=== PATIENT | female | born 1985 | race Two or more races ===

== ENCOUNTER → 2020-09-17 | Outpatient (CLI) | payer OTHER | END | disposition home or self-care (01) | LOC: PRENATAL 15:25 | PROVIDERS: ATTEND Obstetrics & Gynecology Maternal & Fetal Medicine | DX: Z36.89 Encounter for other specified antenatal screening (principal); O36.80X1 Pregnancy with inconclusive fetal viability, fetus 1; O09.521 Supervision of elderly multigravida, first trimester; Z3A.13 13 weeks gestation of pregnancy ==

== ENCOUNTER → 2020-10-22 | Outpatient (CLI) | payer OTHER | END | disposition home or self-care (01) | LOC: PRENATAL 09:00 | PROVIDERS: ATTEND Obstetrics & Gynecology Maternal & Fetal Medicine | DX: O35.0XX1 Maternal care for (suspected) central nervous system malformation in fetus, fetus 1 (principal); O35.3XX1 Maternal care for (suspected) damage to fetus from viral disease in mother, fetus 1; O98.512 Other viral diseases complicating pregnancy, second trimester; O09.512 Supervision of elderly primigravida, second trimester; Z36.89 Encounter for other specified antenatal screening; Z3A.18 18 weeks gestation of pregnancy ==

== ENCOUNTER 2021-02-24 03:58 | Inpatient (IN) | payer OTHER ==
[~2021-02-24] VITALS: Ht 162.6 cm; Wt 72.1 kg
[2021-02-24] MEDS ORDERED: PRENATAL TABLE1 EAC1 PO (04:19)
[2021-02-24] MEDS ORDERED: SYNTHROID50 MCG PO (04:20)
== END 2021-02-26 17:49 | disposition home or self-care (01) | DRG 807 ==
LOC: LDR 03:58 → SURG-SUITE 03:58
PROVIDERS: ADMIT Specialist; ATTEND Specialist
PROC: 10E0XZZ Delivery of Products of Conception, External Approach (ICD-10-PCS; principal; 2021-02-24)
PROC: 10907ZC Drainage of Amniotic Fluid, Therapeutic from Products of Conception, Via Natural or Artificial Opening (ICD-10-PCS; 2021-02-24)
PROC: 4A1HXFZ Monitoring of Products of Conception, Cardiac Rhythm, External Approach (ICD-10-PCS; 2021-02-24)
DX: O60.14X0 Preterm labor third trimester with preterm delivery third trimester, not applicable or unspecified (principal); Z37.0 Single live birth; O99.284 Endocrine, nutritional and metabolic diseases complicating childbirth; E03.9 Hypothyroidism, unspecified; Z3A.36 36 weeks gestation of pregnancy; Z20.822 Contact with and (suspected) exposure to COVID-19

== ENCOUNTER 2021-06-04 07:33 | Outpatient (CLI) | payer OTHER ==
[~2021-06-04 07:33] MED LIST: PRENATAL TABLE1 EAC1 PO; SYNTHROID50 MCG PO
== END 2021-06-04 07:47 | disposition home or self-care (01) ==
LOC: SONOGRAMA 07:33 → MAMO-SONO 07:45 → SONOGRAMA 07:47
PROVIDERS: ATTEND Internal Medicine
DX: E04.2 Nontoxic multinodular goiter (principal)

== ENCOUNTER 2021-09-24 08:00 | Outpatient (CLI) | payer OTHER | END 2021-09-24 08:30 | disposition home or self-care (01) | LOC: PPH VACUNA 08:00 | PROVIDERS: ATTEND Emergency Medicine Pediatric Emergency Medicine | DX: Z23 Encounter for immunization (principal) ==

== ENCOUNTER 2022-01-17 11:37 | Outpatient (CLI) | payer OTHER | END 2022-01-17 11:52 | disposition home or self-care (01) | LOC: SONOGRAMA 11:37 | PROVIDERS: ATTEND Obstetrics & Gynecology | DX: R10.2 Pelvic and perineal pain (principal) ==

== ENCOUNTER 2022-03-25 12:17 | Outpatient (CLI) | payer OTHER | END 2022-03-25 12:25 | disposition home or self-care (01) | LOC: SONOGRAMA 12:17 | PROVIDERS: ATTEND Internal Medicine | DX: E04.2 Nontoxic multinodular goiter (principal) ==

== ENCOUNTER 2023-04-18 09:33 | Outpatient (CLI) | payer OTHER | END 2023-04-18 09:41 | disposition home or self-care (01) | LOC: RAD 09:33 | DX: M99.01 Segmental and somatic dysfunction of cervical region (principal); M99.02 Segmental and somatic dysfunction of thoracic region; M99.03 Segmental and somatic dysfunction of lumbar region; M99.04 Segmental and somatic dysfunction of sacral region; M99.05 Segmental and somatic dysfunction of pelvic region ==

== ENCOUNTER → 2023-11-03 | Outpatient (CLI) | payer OTHER | END | disposition home or self-care (01) | LOC: SONOGRAMA 08:33 | PROVIDERS: ATTEND Internal Medicine | DX: E04.2 Nontoxic multinodular goiter (principal) ==

== ENCOUNTER → 2024-04-06 09:50 | Outpatient (CLI) | payer OTHER | END | disposition home or self-care (01) | LOC: PRENATAL 09:50 | PROVIDERS: ATTEND Obstetrics & Gynecology Maternal & Fetal Medicine | DX: O36.80X0 Pregnancy with inconclusive fetal viability, not applicable or unspecified (principal); Z36.82 Encounter for antenatal screening for nuchal translucency; O99.281 Endocrine, nutritional and metabolic diseases complicating pregnancy, first trimester; Z3A.11 11 weeks gestation of pregnancy; Z87.51 Personal history of pre-term labor ==

== ENCOUNTER 2024-04-17 20:21 | Emergency (ER) | payer OTHER ==
[~2024-04-17] VITALS: Ht 162.6 cm; Wt 63.5 kg
[2024-04-17] MEDS ORDERED: BACITRACIN-NEOMYCIN-POLYMYXIN 0.9 GM PACKET TOP ONE ×2 (21:13→21:15)
[2024-04-17] MEDS ORDERED: TETANUS & DIPHTHERIA TOX,ADULT 0.5 ML VIAL IM ONE (21:15)
[2024-04-17] MEDS ORDERED: TETANUS DIPHTHERIA TOX. ADSOR 5 ML VIAL IM ONE (21:27)
[2024-04-17] MEDS ORDERED: MUPIROCIN15 GM TOP (21:33)
== END 2024-04-17 21:53 ==
LOC: ER 20:21
DX: O26.891 Other specified pregnancy related conditions, first trimester (principal); Z3A.13 13 weeks gestation of pregnancy; T23.231A Burn of second degree of multiple right fingers (nail), not including thumb, initial encounter; X15.0XXA Contact with hot stove (kitchen), initial encounter; Y93.89 Activity, other specified; Y92.010 Kitchen of single-family (private) house as the place of occurrence of the external cause; E03.8 Other specified hypothyroidism

== ENCOUNTER → 2024-05-31 09:36 | Outpatient (CLI) | payer OTHER ==
[~2024-05-31 09:36] MED LIST changes: +MUPIROCIN15 GM TOP
== END | disposition home or self-care (01) ==
LOC: PRENATAL 09:36
PROVIDERS: ATTEND Obstetrics & Gynecology Maternal & Fetal Medicine
DX: O35.3XX0 Maternal care for (suspected) damage to fetus from viral disease in mother, not applicable or unspecified (principal); O44.00 Complete placenta previa NOS or without hemorrhage, unspecified trimester; O99.280 Endocrine, nutritional and metabolic diseases complicating pregnancy, unspecified trimester; O60.00 Preterm labor without delivery, unspecified trimester; Z3A.19 19 weeks gestation of pregnancy

== ENCOUNTER 2024-08-30 13:35 | Outpatient (CLI) | payer OTHER | END 2024-08-30 13:36 | disposition home or self-care (01) | LOC: PRENATAL 13:35 | PROVIDERS: ATTEND Obstetrics & Gynecology Maternal & Fetal Medicine | DX: O26.849 Uterine size-date discrepancy, unspecified trimester (principal); O36.8199 Decreased fetal movements, unspecified trimester, other fetus; O09.529 Supervision of elderly multigravida, unspecified trimester; O99.280 Endocrine, nutritional and metabolic diseases complicating pregnancy, unspecified trimester; O60.00 Preterm labor without delivery, unspecified trimester; Z3A.32 32 weeks gestation of pregnancy ==

== ENCOUNTER 2024-09-22 10:50 | Inpatient (IN) | payer OTHER ==
[~2024-09-22] VITALS: Ht 162.6 cm; Wt 71.7 kg
[2024-10-17 10:00] VITALS: BP 121/77
[2024-10-17] MEDS ORDERED: SYNTHROID75 MCG PO (10:14)
[2024-10-17] MEDS ORDERED: RINGERS SOLUTION,LACTATED 1,000 ML IV SCH (10:15)
[2024-10-17 10:34] VITALS: BP 121/77
[2024-10-17 10:36] LABS: URINE APPEARANCE Clear; URINE BILIRRUBIN Small (NEGATIVE); URINE BLOOD Negative; URINE COLOR Dark Yellow; URINE KETONE 15 (NEGATIVE); URINE LEUKOCYTE Negative; URINE NITRATE Negative; URINE PROTEIN 30 (NEGATIVE)
[2024-10-17 10:37] LABS: URINE BACTERIA 876.2 uL (0.0-1933); URINE CAST 1.47 uL (0.0-1.40); URINE EPITHELIAL CELLS 86.4 uL (0.0-38.8); URINE WBC 10.7 uL (0.0-23.2)
[2024-10-17 10:41] LABS: URINE GLUCOSE 100 MG/DL (NEGATIVE)
[2024-10-17 10:48] LABS: HEMATOCRIT 36.2 % (36.0-45.00); MEAN CELL VOLUME 82.4 fL (80.00-100.00); MEAN CORPUSCULAR HEMOGLOBIN 27.4 pg (27.00-32.0); MEAN CORPUSCULAR HGB CONC 33.2 g/dl (32.0-36.0); RED BLOOD COUNT 4.39 M/uL (4.00-6.00)
[2024-10-17 10:49] LABS: PLATELET COUNT 187 K/uL (150-450); RED CELL DISTRIBUTION WIDTH 21.4 % (11.5-14.5)
[2024-10-17 11:24] LABS: INR < 0.93; PARTIAL THROMBOPLASTIN TIME 30.4 SECONDS (22.0-34.0); PROTHROMBIN TIME 9.8 SECONDS (9.0-11.5)
[2024-10-17 11:28] LABS: ALBUMIN 2.8 gm/dL (3.4-5.0); BILIRUBIN TOTAL 0.36 mg/dL (0.3-1.2); CALCIUM 9.8 mg/dL (8.5-10.1); CREATININE SERUM 0.61 mg/dL (0.55-1.02); GFR 108.09; GLOBULINA 3.6 G/DL (2.4-3.5); POTASSIUM 4.05 mEq/L (3.5-5.1); TOTAL PROTEIN 6.4 gm/dL (6.4-8.2)
[2024-10-17] MEDS ORDERED: ERYTHROMYCIN BASE OPHT 1GM EACH TUBE OP ONE (12:10)
[2024-10-17] MEDS ORDERED: OXYTOCIN 20 UNITS/1000ML RL PIGGYBAG IV ONE (12:11)
[2024-10-17] MEDS ORDERED: CHLORHEXIDINE GLUCONATE 120 ML BOTTLE TOP ONE (12:11)
[2024-10-17] MEDS ORDERED: LIDOCAINE HCL 1% 10ML VIAL ONE (12:11)
[2024-10-17] MEDS ORDERED: ACETAMINOPHEN 500 MG GEL..CAP PO PRN (14:45)
[2024-10-17] MEDS ORDERED: OXYTOCIN 1,000 ML IV SCH (14:45)
[2024-10-17] MEDS ORDERED: BENZOCAINE/MENTHOL 90 ML BOTTLE TOP PRN (14:45)
[2024-10-17] MEDS ORDERED: CHLORHEXIDINE GLUCONATE 120 ML BOTTLE TOP SCH (14:45)
[2024-10-17 15:27] VITALS: BP 115/64
[2024-10-17 16:46] VITALS: BP 122/70
[2024-10-18 00:28] VITALS: BP 120/76
[2024-10-18] MEDS ORDERED: LEVOTHYROXINE SODIUM 50 MCG TABLET PO SCH (06:00)
[2024-10-18 06:55] LABS: HEMATOCRIT 30.4 % (36.0-45.00); HEMOGLOBIN 10.2 g/dL (12.0-15.00); MEAN CELL VOLUME 83.4 fL (80.00-100.00); MEAN CORPUSCULAR HGB CONC 33.6 g/dl (32.0-36.0); RED BLOOD COUNT 3.64 M/uL (4.00-6.00)
[2024-10-18 07:13] LABS: PLATELET COUNT 159 K/uL (150-450)
[2024-10-18 08:33] VITALS: BP 97/63
[2024-10-18] MEDS ORDERED: PNV,CALCIUM 72/IRON/FOLIC ACID 1 TAB TABLET PO SCH (09:00)
[2024-10-18 15:52] VITALS: BP 112/76
[2024-10-18] MEDS ORDERED: POLYETHYLENE GLYCOL 3350 17 GM BLIST.PACK PO SCH (17:00)
[2024-10-19 01:27] VITALS: BP 108/74
[2024-10-19 08:45] VITALS: BP 98/61
== END 2024-10-19 14:29 | disposition home or self-care (01) | DRG 807 ==
LOC: OB/GYN 10-17 09:26 → LDR 10-17 09:26 → OB/GYN 10-17 14:33 → LDR 10-23 10:49
PROVIDERS: Obstetrics & Gynecology; ADMIT Obstetrics & Gynecology; ATTEND Obstetrics & Gynecology
PROC: 10E0XZZ Delivery of Products of Conception, External Approach (ICD-10-PCS; principal; 2024-10-17)
PROC: 0HQ9XZZ Repair Perineum Skin, External Approach (ICD-10-PCS; 2024-10-17)
PROC: 4A1HXCZ Monitoring of Products of Conception, Cardiac Rate, External Approach (ICD-10-PCS; 2024-10-17)
DX: O70.0 First degree perineal laceration during delivery (principal); Z37.0 Single live birth; O69.81X0 Labor and delivery complicated by cord around neck, without compression, not applicable or unspecified; Z3A.39 39 weeks gestation of pregnancy

== ENCOUNTER 2025-06-16 13:10 | Outpatient (CLI) | payer OTHER ==
[~2025-06-16 13:10] MED LIST changes: +SYNTHROID75 MCG PO
== END 2025-06-16 13:17 | disposition home or self-care (01) ==
LOC: SONOGRAMA 13:10
PROVIDERS: ATTEND Internal Medicine
DX: E04.2 Nontoxic multinodular goiter (principal)